=== PATIENT | male | born 1990 | race Caucasian/White ===

== ENCOUNTER 2017-11-13 09:27 | Observation (INO) | payer BC ==
[2017-11-13 10:27] LABS: Hematocrit 42 % (42-52); Hemoglobin 14.4 g/dl (14.0-18.0); Mean Corpuscular HGB Conc 34 g/dl (31-36); Mean Corpuscular Hemoglobin 32 pg (27-31); Mean Corpuscular Volume 93 fL (80-94); Mean Platelet Volume 11 um3 (7.4-10.4); Platelet Count 184 10^3/ul (150-450); Red Blood Count 4.53 10^6/ul (4.0-5.4); Red Cell Distribution Width 16 % (10.5-15); White Blood Count 5.1 10^3/ul (3.5-10.8)
[2017-11-13 10:43] LABS: INR 1.1 (0.77-1.02)
--- NOTE | 2017-11-13 10:45 | RAD ---
HISTORY: Jaundice COMPARISONS: None VIEWS: Frontal supine and upright views of the abdomen. FINDINGS: BOWEL: There is a nonspecific bowel gas pattern, with nondilated small bowel gas noted. There is a large amount of stool within the colon. CALCULI: There are no abnormal calculi. BONES AND SOFT TISSUES: There is a scoliotic curvature of the spine OTHER FINDINGS: The lung bases are clear. There is no subphrenic gas. IMPRESSION: NONSPECIFIC BOWEL GAS PATTERN. LARGE AMOUNT OF STOOL WITHIN THE COLON.
[2017-11-13 11:01] LABS: ABS Basophils 0 10^3/ul (0-0.2); ABS Eosinophils 0.2 10^3/ul (0-0.6); ABS Lymphocytes 1.4 10^3/ul (1.0-4.8); ABS Monocytes 0.9 10^3/ul (0-0.8); ABS Neutrophils 2.6 10^3/ul (1.5-7.7); ABS Nucleated RBC 0 10^3/ul; Eosinophil % 4.2 % (0-6); Lymphocyte % 26.7 % (25-47); Nucleated Red Blood Cells % 0.1
[2017-11-13] MEDS ORDERED: NS 0.9% 1000 ML* 1,000 ML IV ONE (12:09)
[2017-11-13] MEDS: NS 0.9% 1000 ML* 1,000 ML IV SCH ×2 (13:42→22:25)
[2017-11-13] MEDS ORDERED: diPHENhydraMINE PO* 50 MG PO PRN (13:57)
[2017-11-13] MEDS ORDERED: cloNIDine TAB* 0.1 MG PO PRN (13:57)
[2017-11-13 14:11] LABS: Urine Appearance Clear; Urine Blood Negative (Negative); Urine Ketones Negative (Negative); Urine Protein Negative (Negative); Urine Specific Gravity 1.006 (1.010-1.030); Urine Urobilinogen Positive (Negative)
[2017-11-13 15:16] LABS: Urine Color Yellow
[2017-11-13] MEDS: Gabapentin CAP(*) 400 MG PO SCH ×2 (16:34→21:19)
[2017-11-13] MEDS: Buprenorphine/Naloxone 8-2 MG SL TAB* 1 TAB PO SCH (16:34)
[2017-11-13] MEDS ORDERED: Buprenorphine/Naloxone 8-2 MG SL TAB* 1 TAB SL SCH (17:00)
--- NOTE | 2017-11-13 17:57 | ED ---
Hien Melgar Edward, scribed for Paul Muñoz MD on 11/13/17 at 0940 . Complex/Multi-Sys Presentation - HPI Summary HPI Summary: 27 y/o male BRIT, sent from the rehab center to check up on his abnormal labs. He states he has been clean since Oct 11, 2017. Pt denies any symptoms currently. Pt does not drink. Pt used to use heroin and cocaine. - History Of Current Complaint Chief Complaint: EDGeneral Time Seen by Provider: 11/13/17 09:32 Hx Obtained From: Patient Associated Signs And Symptoms: Negative: Other - negative - Allergies/Home Medications Allergies/Adverse Reactions: Allergies Allergy/AdvReac Type Severity Reaction Status Date / Time Fish Allergy Allergy Unknown Verified 11/13/17 09:44 Reaction Details Shellfish Allergy Allergy Unknown Verified 11/13/17 09:44 Reaction Details Trazodone Allergy Unknown Verified 11/13/17 13:51 Reaction Details Home Medications: Home Medications Acetaminophen [APAP] 650 mg PO Q4H PRN 11/13/17 [History Confirmed 11/13/17] Bisacodyl SUPP* [Dulcolax Supp*] 1 each HI DAILY 11/13/17 [History Confirmed ] Buprenorphine/Naloxone SL TAB* [Suboxone 8-2 mg SL TAB*] 1 tab.sl SL BID [History Confirmed 11/13/17] Clonidine HCl [Catapres 0.1 MG TAB] 0.1 mg PO TID PRN 11/13/17 [History Confirmed 11/13/17] Docusate CAP* [Colace Cap*] 100 mg PO DAILY 11/13/17 [History Confirmed 11/13/17 ] Doxepin HCl 20 mg PO BEDTIME 11/13/17 [History Confirmed 11/13/17] Gabapentin CAP(*) [Neurontin 400 mg CAP(*)] 800 mg PO TID 11/13/17 [History Confirmed 11/13/17] Hydroxyzine HCl 25 mg PO BEDTIME 11/13/17 [History Confirmed 11/13/17] Ibuprofen [Advil] 600 mg PO Q4H PRN 11/13/17 [History Confirmed 11/13/17] Melatonin 20 mg PO BEDTIME 11/13/17 [History Confirmed 11/13/17] Multivitamins/Minerals TAB* [Theragran/minerals TAB*] 1 tab PO DAILY 11/13/17 [ History Confirmed 11/13/17] Nicotine PATCH 21 MG/24 HR* 21 mg TRANSDERM DAILY 11/13/17 [History Confirmed ] Omeprazole CAP* [Prilosec CAP* 20 MG] 20 mg PO DAILY 11/13/17 [History Confirmed 11/13/17] Oxcarbazepine [Trileptal 150 mg] 150 mg PO TID 11/13/17 [History Confirmed 11/13] Senna TAB* [Senokot TAB*] 1 tab PO DAILY 11/13/17 [History Confirmed 11/13/17] Venlafaxine EXT RELEASE CAP* [Effexor Xr CAP*] 37.5 mg PO DAILY 11/13/17 [ History Confirmed 11/13/17] diPHENhydraMINE PO* [Benadryl PO 25 MG TAB*] 50 mg PO BEDTIME PRN 11/13/17 [ History Confirmed 11/13/17] PMH/Surg Hx/FS Hx/Imm Hx Previously Healthy: No Infectious Disease History: No Infectious Disease History: Denies: Traveled Outside the [place] in Last 30 Days - Family History Known Family History: Positive: None - Social History Alcohol Use: None Hx Substance Use: Yes Substance Use Type: Reports: Cocaine, Heroin Hx Tobacco Use: No Smoking Status (MU): Never Smoked Tobacco Review of Systems Constitutional: Negative Eyes: Negative ENT: Negative Cardiovascular: Negative Respiratory: Negative Gastrointestinal: Negative Genitourinary: Negative Musculoskeletal: Negative Skin: Negative Neurological: Negative Psychological: Normal All Other Systems Reviewed And Are Negative: Yes Physical Exam - Summary Physical Exam Summary: VITAL SIGNS: Reviewed. GENERAL: Patient is a well-developed and nourished male who is lying comfortable in the stretcher. Patient is not in any acute respiratory distress. HEAD AND FACE: No signs of trauma. No ecchymosis, hematomas or skull depressions. No sinus tenderness. EYES: PERRLA, EOMI x 2, No injected conjunctiva, no nystagmus. EARS: Hearing grossly intact. Ear canals and tympanic membranes are within normal limits. MOUTH: Oropharynx within normal limits. NECK: Supple, trachea is midline, no adenopathy, no JVD, no carotid bruit, no c- spine tenderness, neck with full ROM. CHEST: Symmetric, no tenderness at palpation LUNGS: Clear to auscultation bilaterally. No wheezing or crackles. CVS: Regular rate and rhythm, S1 and S2 present, no murmurs or gallops appreciated. ABDOMEN: Soft, non-tender. No signs of distention. No rebound no guarding, and no masses palpated. Bowel sounds are normal. EXTREMITIES: FROM in all major joints, no edema, no cyanosis or clubbing. NEURO: Alert and oriented x 3. No acute neurological deficits. Speech is normal and follows commands. SKIN: Dry and warm. Jaundiced. Triage Information Reviewed: Yes Vital Signs On Initial Exam: Initial Vitals Temp Pulse Resp BP Pulse Ox 97.5 F 76 20 115/69 91 11/13/17 09:31 11/13/17 09:31 11/13/17 09:31 11/13/17 09:31 11/13/17 09:31 Vital Signs Reviewed: Yes Diagnostics - Vital Signs Vital Signs Temp Pulse Resp BP Pulse Ox 11/13/17 09:31 97.5 F 76 20 115/69 91 - Laboratory Result Diagrams: 11/13/17 10:12 11/13/17 10:12 Lab Statement: Any lab studies that have been ordered have been reviewed, and results considered in the medical decision making process. - Radiology ABD XR Xray Interpretation: No Acute Changes - NONSPECIFIC BOWEL GAS PATTERN. LARGE AMOUNT OF STOOL WITHIN THE COLON. Radiology Interpretation Completed By: Radiologist - ED PHYSICIAN REVIEWS AND AGREES Complex Multi-Symp Course/Dx Assessment/Plan: 27 y/o male BRIT, sent from the rehab center to check up on his abnormal labs. He states he has been clean since Oct 11, 2017. Pt denies any symptoms currently. Pt does not drink. Pt used to use heroin and cocaine. ABD XR SHOWS NONSPECIFIC BOWEL GAS PATTERN. LARGE AMOUNT OF STOOL WITHIN THE COLON. Test results are without significant abnormalities except INR 1.1, APT 46 , bilirubin 6, direct bilirubin 3.8, GGT 303, AST 805, ALT 1195. In the ED course the pt was hydrated. I believe the sx are secondary to acute Hep C. Discussed with Ivon Ambrosio NP who is working with Dr. garzon who accepted the for admission. Pt is hemodynamically stable, A&Ox3. - Diagnoses Provider Diagnoses: Hepatitis C, Jaundice - Physician Notifications Discussed Care Of Patient With: Martin Garzon Time Discussed With Above Provider: 11:30 Instructed by Provider To: Admit As Inpatient Discharge - Discharge Plan Condition: Stable Disposition: ADMITTED TO [facility] The documentation as recorded by the Hien wei Edward accurately reflects the service I personally performed and the decisions made by me, Paul Muñoz MD.
--- NOTE | 2017-11-13 19:07 | RAD ---
HISTORY: Jaundice COMPARISONS: None TECHNIQUE: Multiple transverse and longitudinal ultrasound images were obtained of the right upper quadrant of the abdomen using grayscale and color Doppler imaging. FINDINGS: LIVER: The liver is normal in shape, size, contour, and echogenicity. There are no focal parenchymal masses. There is normal hepatopedal flow of the portal vein on Doppler imaging. BILIARY TREE: There is no intrahepatic or extrahepatic biliary dilatation. The common duct measures 0.6 cm. GALLBLADDER: The gallbladder is well-visualized. There is no cholelithiasis, gallbladder wall thickening, pericholecystic fluid, or sonographic Olvera sign. PANCREAS: The head of the pancreas is unremarkable. The tail of the pancreas is not well visualized secondary to overlying bowel gas. RIGHT KIDNEY: The right kidney is normal in shape, size, contour, and echogenicity. There is no hydronephrosis or nephrolithiasis. The right kidney measures 11.8 x 6 x 6.1 cm. AORTA AND IVC: The aorta and IVC are unremarkable. FLUID: There are no pleural effusions. There is no free fluid within the hepatorenal recess. OTHER FINDINGS: None. IMPRESSION: NO ACUTE SONOGRAPHIC PATHOLOGY OF THE VISUALIZED PORTION OF THE ABDOMEN.
[2017-11-13] MEDS ORDERED: Nicotine Patch Removal NOTE PATCH OFF SCH (21:00)
[2017-11-13] MEDS ORDERED: MELATONIN 20 MG PO SCH (21:00)
[2017-11-13] MEDS ORDERED: hydrOXYzine HCL TAB* 10 MG PO SCH (21:00)
[2017-11-13] MEDS ORDERED: hydrOXYzine HCL TAB* 25 MG PO SCH (21:11)
[2017-11-13] MEDS: CMC:Melatonin (NF) 3 MG TAB PO SCH ×2 (21:20)
--- NOTE | 2017-11-13 22:25 | HP ---
[facility] MEDICINE HISTORY AND PHYSICAL: DATE OF ADMISSION: 11/13/17 ATTENDING PHYSICIAN: Martin Sheldon MD * (dictation provided by Malu Ambrosio NP) CHIEF COMPLAINT: Jaundice. HISTORY OF PRESENT ILLNESS: Mr. Wilkes is a 27-year-old male who is currently at [facility], which is an addiction treatment center here in [facility]. It was noted over the past 2 to 3 days that he appeared jaundiced. Labs there checked revealed that he had hepatitis C RNA over 5 million and grossly elevated LFTs. Mr. Wilkes states that he has been completely asymptomatic and only received evaluation because someone noticed that he appeared jaundiced. He denies any abdominal pain. He states his urine has been dark. There is no change to his bowel habits. He notes that he has been checked for hepatitis and HIV in the past due to his history of intravenous heroin use. He has never been positive as far as he is aware. In the emergency room, Mr. Wilkes had labs, which showed that he had an elevated bilirubin of 6, AST 805, ALT 1195, alk phos 105. Ammonia 80. His INR is 1.10. His platelet count is 184. PAST MEDICAL HISTORY: 1. Depression. 2. Drug abuse. 3. Nicotine use. MEDICATIONS: Outpatient are: 1. Tylenol 650 mg p.o. q.4 hours p.r.n. 2. Doxepin 20 mg p.o. at bedtime. 3. Ibuprofen 600 mg p.o. q.4 hours p.r.n. 4. Oxcarbazepine 150 mg p.o. t.i.d. 5. Bisacodyl 10 mg per rectum daily. 6. Suboxone 8/2 mg sublingually b.i.d. 7. Clonidine 0.1 mg p.o. t.i.d. p.r.n. 8. Diphenhydramine 50 mg p.o. at bedtime p.r.n. 9. Docusate 100 mg p.o. daily. 10. Gabapentin 800 mg p.o. t.i.d. 11. Hydroxyzine 25 mg p.o. at bedtime. 12. Melatonin 20 mg p.o. at bedtime. 13. Multivitamin with mineral 1 tab p.o. daily. 14. Nicotine patch 21 mg transdermally daily. 15. Omeprazole 20 mg p.o. daily. 16. Senna 1 tab p.o. daily. 17. Venlafaxine 37.5 mg p.o. daily. ALLERGIES: FISH, SHELLFISH and TRAZODONE. FAMILY HISTORY: The patient states his mom and dad are alive and well. Does not have any chronic health problems in the family of importance. SOCIAL HISTORY: The patient is a former smoker, only quitting when he reached [facility], wears a nicotine patch. He has a history of alcohol and drug use , specifically heroin. He states that he started using narcotics after being given oxycodone for ankle pain. REVIEW OF SYSTEMS: A 14-point review of systems was completed with Mr. Wilkes and all those not mentioned above were negative. PHYSICAL EXAMINATION GENERAL: Mr. Wilkes is sitting in the bed. He is in no acute distress. VITAL SIGNS: Temperature 98.6, pulse rate 67, respiratory rate 16, O2 saturation 98% on room air, blood pressure 111/78. HEENT: Eyes, sclerae jaundiced. LUNGS: Clear to auscultation bilaterally with no accessory muscle use and good aeration. HEART: S1, S2. No murmur, rub, or gallop and regular. ABDOMEN: Soft. There is hepatomegaly. He is nontender. EXTREMITIES: No cyanosis or edema. NEURO: He is alert. He is oriented x3. He moves all extremities equally. There is no facial asymmetry or focal weakness. Extraocular movements are intact. SKIN: The patient is jaundiced. LABORATORY DATA/DIAGNOSTIC STUDIES: WBC 5.1, hemoglobin 14.4, hematocrit 42, platelet count 184. INR 1.10. Sodium 135, potassium 4.1, chloride 99, serum bicarbonate 29, BUN 13, creatinine 0.76, glucose 101. Lactic acid 0.9. Total bilirubin 6. GGT 303, AST 808, ALT 1195, alk phos 105. CRP 5.15. Ammonia 80. Urine shows no evidence of infection. Abdominal x-ray shows stool only. ASSESSMENT AND PLAN: Mr. Wilkes is a 27-year-old male with a past medical history of intravenous drug use, depression, and anxiety who presents to the hospital today from [facility] with concern for jaundice, found to have acute hepatitis likely secondary to hepatitis C. Plans are for inpatient admission as I expect his length of stay to be greater than 2 days for the followin. Acute hepatitis. The patient has a hepatitis C RNA of 5.3 million. Plan to check the antibodies for HCV now. If those are negative, it very likely represents acute hepatitis C infection. I have also sent for hepatitis B and HIV. I will obtain a gallbladder ultrasound though this very unlikely related to gallstones due to the lack of pain. The patient is also on Trileptal and Suboxone, which can lead to hepatitis. I am holding the Trileptal, but I have reviewed the literature and made note of a case series that demonstrated patients tolerate Suboxone quite well even during episodes of acute hepatitis. Given the risk associated with stopping Suboxone on this patient and the fact that it has been shown to be proven effective and safe in the literature, plan to continue for now, but monitor liver function tests closely. I did review the case with Dr. Cherry over the phone. I have not asked formally for a consultation as of yet. 2. Narcotic addiction. Again, continue Suboxone as per above. 3. Depression. Plan to continue venlafaxine. Hold Trileptal. 4. DVT prophylaxis with SCDs. 5. Code status is full code. TIME SPENT: Approximately 60 minutes were spent on the admission of this patient, and more than half of the time was spent with the patient at the bedside reviewing the events leading up to this hospitalization, performing the physical examination and reviewing the plan of care. MALU AMBROSIO NP [id number]/CPS #: [id number] OLEGARIO
[2017-11-14] MEDS: NS 0.9% 1000 ML* 1,000 ML IV SCH (06:26)
[2017-11-14] MEDS ORDERED: Nicotine PATCH 21 MG/24 HR* PATCH TRANSDERM SCH (09:00)
[2017-11-14] MEDS ORDERED: Docusate CAP* 100 MG PO SCH (09:00)
[2017-11-14] MEDS ORDERED: Bisacodyl SUPP* 10 MG SUPP PR SCH (09:00)
[2017-11-14] MEDS ORDERED: Omeprazole CAP* 20 MG PO SCH (09:00)
[2017-11-14] MEDS ORDERED: Venlafaxine EXT RELEASE CAP* 37.5 MG PO SCH (09:00)
[2017-11-14] MEDS ORDERED: Multivitamins/Minerals TAB PO SCH (09:00)
[2017-11-14] MEDS ORDERED: Senna TAB PO SCH (09:00)
[2017-11-14] MEDS: Gabapentin CAP(*) 400 MG PO SCH ×2 (09:24→14:02)
[2017-11-14] MEDS: Buprenorphine/Naloxone 8-2 MG SL TAB* 1 TAB PO SCH (09:25)
--- NOTE | 2017-11-14 13:16 | PN ---
Progress Note - Progress Note Date of Service: 11/14/17 Note: Discharge Progress Note Primary Diagnosis: acute hepatitis C Secondary Diagnoses: opiate abuse depression nicotine addiction Consultations: none Procedures: none Complications: none Pertinent lab and radiology testing: RUQ Ultrasound: no gallstone Laboratory Tests 11/13/17 11/13/17 11/13/17 10:12 10:12 10:12 INR (Anticoag Therapy) 1.10 H APTT 46.3 H Total Bilirubin 6.00 H Direct Bilirubin 3.80 H GGT 303 H AST 805 H ALT 1195 H Alkaline Phosphatase 105 H Ammonia 80 H Lipase < 10 L Hep Bs Antigen 11/13/17 11/14/17 11/14/17 10:12 06:30 07:39 INR (Anticoag Therapy) APTT Total Bilirubin 5.20 H Direct Bilirubin GGT AST 669 H ALT 1082 H Alkaline Phosphatase Ammonia Lipase Hep Bs Antigen Nonreactive Tests pending upon discharge: HIV 1&2 Hep C Ab Hep B Core Ab Physical Exam: Selected Entries 11/14/17 07:35 Temperature 36.6 C Pulse Rate 49 Respiratory 16 Rate Blood Pressure 104/60 (mmHg) O2 Sat by Pulse 95 Oximetry Alert, no distress Mildly icteric sclera
[2017-11-14 13:23] VITALS: BP 101/65
--- NOTE | 2017-11-15 02:55 | DS ---
CC: [facility] * DISCHARGE SUMMARY: DATE OF ADMISSION: 11/13/17 DATE OF DISCHARGE: 11/14/17 PRIMARY DIAGNOSIS: Acute hepatitis C. SECONDARY DIAGNOSES: 1. Opioid abuse. 2. Depression. 3. Nicotine addiction. MEDICATIONS ON DISCHARGE: 1. Dulcolax suppository OH every day p.r.n. 2. Suboxone 8 mg sublingual b.i.d. 3. Clonidine 0.1 mg p.o. t.i.d. 4. Benadryl 50 mg p.o. q.h.s. p.r.n. 5. Colace 100 mg p.o. every day. 6. Doxepin 20 mg p.o. q.p.m. 7. Gabapentin 800 mg p.o. t.i.d. 8. Hydroxyzine 25 mg p.o. q.p.m. p.r.n. 9. Ibuprofen 600 mg p.o. q.4 hours p.r.n. 10. Melatonin 20 mg p.o. q.h.s. 11. Multivitamin 1 tab p.o. every day. 12. Nicotine patch 21 mg per 24 hours topically every day. 13. Omeprazole 20 mg p.o. every day. 14. Trileptal 150 mg p.o. t.i.d. 15. Senna 1 tab p.o. every day. 16. Venlafaxine ER 37.5 mg p.o. every day. HOSPITAL COURSE: The patient was admitted from the [facility] with concerns of acute hepatitis. Hepatitis C viral loads were in the millions upon admission. AST was initially 805; ALT was initially 1195, this fell to 669 and 1082 respectively on the next day. Ammonia level was 80, lipase less than 10. INR was 1.1, PTT was 46.3, total bilirubin was 6.0 which fell to 5.2 the next day. Hepatitis B surface antigen is negative. Tests pending on discharge include HIV 1 and 2, hepatitis C antibody ordered for no apparent reason and hepatitis B core antibody. The patient had a right upper quadrant ultrasound that was negative for gallstones, negative for any acute liver pathology. On the day of discharge, the patient was tolerating regular food without nausea and ambulatory. It is our assessment the patient has acute hepatitis C, probable exposure in the last 2 to 6 weeks. His transaminases are trending down and he will likely move into a chronic phase without any further incident. He may in fact clear the virus entirely in a few months. At this time he can return to his rehabilitation center with normal standard precautions to be followed. He should be discharged to primary care when ready and referred to Infectious Disease or Gastroenterology for hepatitis C treatment in the next 6 to 12 months. The discharge is to [facility]. DIET: As tolerated, regular. ACTIVITY: As tolerated. [id number]/[facility] #: [id number] MTDD
== END 2017-11-14 15:05 | disposition home or self-care (01) ==
LOC: ED 09:27 → MED 12:04 → INTOOBSV 12:04 → MED 12:34
PROVIDERS: ADMIT Internal Medicine; ATTEND Internal Medicine
DX: B19.20 Unspecified viral hepatitis C without hepatic coma (principal); R17 Unspecified jaundice; F11.10 Opioid abuse, uncomplicated; F32.9 Major depressive disorder, single episode, unspecified; F17.200 Nicotine dependence, unspecified, uncomplicated
CPT/HCPCS: 36415; 74019; 76705; 80053; 81003; 82140; 82150; 82248; 82550; 82977; 83605; 83690; 85025; 85610; 85730; 86140; 86703; 86705; 86803; 87340; 99283; A9270-GY; G0378